=== PATIENT | female | born 1970 | race Caucasian/White ===

== ENCOUNTER 2018-11-08 20:33 | Outpatient (REF) | payer BC, SELFPAY ==
[2018-11-08 19:28] LABS: HCT 40.6 % (36.0-46.0); HGB 13.5 g/dL (12.0-15.5); Mean Corp. HGB Concentration 33.3 g/dL (32.0-36.0); Mean Corpuscular Hemoglobin 28.1 pg (27.0-33.0); Mean Corpuscular Volume 84.6 fL (80-95); Mean Platelet Volume 11.4 fL (8.0-11.0); Platelet Count 341 x1000/uL (130-400); RBC Distribution Width 14.5 % (11.7-14.6); White Blood Cell Count 8.35 k/cumm (4.4-10.8)
[2018-11-08 22:00] LABS: TSH (W/Ref FT4) 3.31 uIU/mL (0.36-3.74)
== END 2018-11-08 20:53 ==
LOC: NCHCN 20:33
PROVIDERS: PCP Nurse Practitioner Family; Visit Provider Nurse Practitioner Family
DX: R53.83 Other fatigue (principal)
CPT/HCPCS: 85027; 84443

== ENCOUNTER 2018-11-13 13:38 | Emergency (ER) | payer BC, SELFPAY ==
[2018-11-13 13:55] VITALS: BP 153/94; PULSE 107; RESP 18; TEMP 36.8; O2SAT 97
--- NOTE | 2018-11-13 13:58 | DI.CT_ITS ---
SYMPTOMS/DIAGNOSIS: LEFT UNILATERAL TONSILLAR SWELLING X 2 DAYS, H/O ABSCESS, NEGATIVE STREP TEST CERVICAL CT: CT examination of the cervical region was performed with intravenous infusion of 100 cc of Omnipaque 350. The patient reportedly has left tonsillar swelling. There is mild midline shift of the nasopharynx to the right at the level of the tonsils and there is poorly defined decreased attenuation in the left tonsil region consistent with poorly defined tonsillar abscess and/or inflammation. No gross mass identified. The airway appears normal more caudally and the laryngeal structures appear normal, as does the trachea. No evidence of a retropharyngeal abscess. Normal appearance of the epiglottis and aryepiglottic folds. No cervical mass or adenopathy. The visualized lung apices are clear. CONCLUSION: Findings consistent with early poorly defined left peritonsillar abscess. Please correlate clinically.
--- NOTE | 2018-11-13 14:08 | ED.GENADUL_ITS ---
Discharge Plan Disposition Patient Disposition: HOME Condition: Stable Discharge Details Chief Complaint: Sorethroat Clinical Impression: Peritonsillar abscess Primary Care Provider: Panchito Vance ED Provider: Pankaj Phillip Home Meds and New Rx's Prescriptions: New amoxicillin-pot clavulanate [Augmentin] 875-125 mg tablet 1 tab PO BID Qty: 14 RF: 0 No Action Mirena 1 EACH intrauterine device 1 ea Intrauterine ONCE Qty: 1 RF: 0 triamcinolone acetonide 0.1 % Cream TOPICAL RF: 0 Discharge Instructions Instructions: Peritonsillar Abscess (ED) Additional Instructions: Return immediately to the emergency department for any new or significant worsening of symptoms, inability to swallow, or difficulty breathing. Otherwise ensure that you take your second dose of antibiotic tonight before bed and get a dose first thing tomorrow morning and follow-up with Dr. Landry with ear nose and throat at the [place] office tomorrow at 1 PM. You take ibuprofen as needed for further discomfort. Stand Alone Forms: Work Release Referrals: Kody Landry MD [ [facility] STAFF PHYSICIAN] - 11/14/18 1:00 pm (Please present to the [place] [facility] office for reassessment of your infection) Discharge Data Discharge Date/Time-TO BE ENTERED AT DEPARTURE: 11/13/18 15:56 Medical Decision Making Patient presenting to the emergency department via primary care office for chief complaint of sore throat. They did rapid strep testing which was negative the patient has unilateral tonsillary swelling to the left side. She does state history of tonsil stones but that she is also had drainage for peritonsillar abscess. Physical exam shows a erythematous and mildly hypertrophied left tonsil. Patient has no drooling or trismus, no stridor, airway is stable. There is concern for peritonsillar abscess given patient's history and unilateral swelling so plan to do CT with contrast of neck. Pending results patient given Decadron. Review of labs show a mild leukocytosis otherwise nondiagnostic. CT imaging reviewed with radiologist shows a possible early peritonsillar abscess with no severe airway restriction. Patient reassessed and did state some slight improvement in sensation of swelling and swallowing. Did speak with Dr. Landry who states that he can see the patient in his [place] office at 1:00 tomorrow. Patient was placed upon Augmentin and return precautions were discussed. After discussion of diagnosis and plan of care patient has no further needs, questions, or concerns and states clear understanding to return to the emergency department for any worsening symptoms. HPI General Mode of arrival: ambulatory . Date/Time Provider Initiated Documentation: 11/13/18 13:58 . Limitations to Documentation: no limitations . Information obtained by: patient and RN notes reviewed . History of Present Illness 48 year old F presents to the emergency department with the chief complaint of Sore throat, described as moderate and similar to prior episodes, with intensity rated at 7. Quality is described as aching, and is localized to the face and mouth (Sore throat). Patient started experiencing this day(s) (3) and it has been constant. No relieving factors improve symptom(s), No exacerbating factors reported . Patient notes no other symptoms.. Patient did receive the following treatments prior to arrival, none Related Data Home Medications Medication Instructions Recorded Confirmed levonorgestrel [Mirena] 1 ea INTRAUTERINE ONCE #1 implant 06/16/15 11/13/18 amoxicillin-pot clavulanate 1 tab PO BID #14 tab 11/13/18 [Augmentin] triamcinolone acetonide TOPICAL 11/13/18 Previous Rx's Medication Instructions Recorded amoxicillin-pot clavulanate 1 tab PO BID #14 tab 11/13/18 [Augmentin] Allergies Allergy/AdvReac Type Severity Reaction Status Date / Time No Known Allergies Allergy Unverified 09/06/17 14:50 General Stated Complaint: Sorethroat MELISSA: 3 Review of Systems Constitutional Denies chills and Denies fever(s) ENT Denies otalgia, Denies nasal congestion, Reports odynophagia, Reports sore throat, Denies throat swelling and Denies tongue swelling Cardiovascular Denies chest pain and Denies dyspnea Respiratory Denies cough, Denies dyspnea, Denies stridor and Denies wheezing Gastrointestinal Reports odynophagia Allergic/Immunologic Denies throat swelling, Denies tongue swelling and Denies wheezing PFSH Family History Mother Diabetes Essential hypertension Uterine cancer Grandmother Heart disease Social History Smoking/Tobacco Use Status: Never Do you feel safe at home: Yes Do you feel safe in your relationship?: Yes Exam Const General: cooperative, comfortable and no acute distress Orientation: alert and awake [facility] Head: normal to inspection, normocephalic and atraumatic Ears: hearing grossly normal bilaterally and TM's normal bilaterally General nose exam: external nose normal Face and sinus: no erythema Mouth: oral mucosae normal, no drooling, no muffled voice and no trismus Throat: posterior oropharynx normal, uvula midline and abnormal tonsil on the left erythema and hypertrophy 2+ Neck Neck: normal visual inspection, full ROM, no lymphadenopathy, no meningeal signs, trachea midline and supple Resp Effort & Inspection: normal respiratory effort, able to speak in complete sentences and no stridor Auscultation: clear to auscultation bilaterally Course Vital Signs Temperature 36.8 C 11/13/18 13:55 Pulse 107 H 11/13/18 13:55 Respiratory Rate 18 11/13/18 13:55 Blood Pressure 153/94 H 11/13/18 13:55 Pulse Oximetry 97 11/13/18 13:55 Temperature 36.8 C 11/13/18 13:55 Temperature Source Skin 11/13/18 13:55 Pulse 107 H 11/13/18 13:55 Respiratory Rate 18 11/13/18 13:55 Blood Pressure 153/94 H 11/13/18 13:55 Pulse Oximetry 97 11/13/18 13:55 Oxygen Delivery Method Room Air 11/13/18 13:55 Oxygen Flow Rate 0 11/13/18 13:55 Pain Level 7 11/13/18 13:55 Comment 11/13/18 13:55
[2018-11-13] MEDS: Dexamethasone 10 MG/ML VIAL PO (14:17)
[2018-11-13] MEDS: Normal Saline 1,000 ML 1000 ML IV (14:17)
[2018-11-13 14:18] LABS: Abs Immature Grans 0.03 k/cumm (0.0-0.09); Absolute Basophil Count 0.05 k/cumm (0.0-0.2); Absolute Eosinophil Count 0.09 k/cumm (0.0-0.7); Absolute Lymphocyte Count 2.09 k/cumm (1.2-3.4); Absolute Monocyte Count 0.83 k/cumm (0.11-0.7); Basophils % 0.4; Eosinophils % 0.7; HCT 42.3 % (36.0-46.0); HGB 14.3 g/dL (12.0-15.5); Immature Grans % 0.2; Lymphocytes % 17.1; Mean Corp. HGB Concentration 33.8 g/dL (32.0-36.0); Mean Corpuscular Hemoglobin 28.5 pg (27.0-33.0); Mean Corpuscular Volume 84.3 fL (80-95); Mean Platelet Volume 10.6 fL (8.0-11.0); Monocytes % 6.8; Neutrophils % 74.8; Platelet Count 358 x1000/uL (130-400); RBC 5.02 m/cumm (4.00-5.20); RBC Distribution Width 14.5 % (11.7-14.6); White Blood Cell Count 12.23 k/cumm (4.4-10.8)
[2018-11-13 14:19] LABS: Absolute Neutrophil Count 9.15 k/cumm (1.2-6.7)
[2018-11-13] MEDS: Omnipaque 350 MG/ML 100 ML BTL IJ (15:13)
[2018-11-13 15:42] LABS: ALT 22 U/L (12-78); AST 10 U/L (15-37); Albumin 3.8 g/dL (3.4-5.0); Alkaline Phosphatase 64 U/L (46-116); Anion Gap 11.1 mmol/L (3-11); BUN 13 mg/dL (7-18); Bilirubin, Total 0.6 mg/dL (0.2-1.0); CO2 24.9 mmol/L (21.0-32.0); CREATININE 0.89 mg/dL (0.55-1.02); Calcium 8.9 mg/dL (8.5-10.1); Chloride 102 mmol/L (98-107); Glucose 106 mg/dL (70-100); Potassium 3.7 mmol/L (3.5-5.1); Sodium 138 mmol/L (136-145)
[2018-11-13] MEDS: Amoxicillin 875/Clav. 125 TAB PO (15:52)
[2018-11-13] MEDS: Ibuprofen 600 MG TAB (15:55)
== END 2018-11-13 15:56 | disposition home or self-care (01) ==
PROVIDERS: Emergency Provider Nurse Practitioner Family; PCP Nurse Practitioner Family
DX: J36 Peritonsillar abscess (principal)
CPT/HCPCS: 36415; 70491; 80053; 96360; 99285; 85025; 99284; J1100; J3490

== ENCOUNTER 2019-04-04 02:27 | Outpatient (CLI) | payer BC, SELFPAY ==
--- NOTE | 2019-04-04 12:41 | DI.MAMMO_ITS ---
EXAM: MG MAMMO SCREENING CLINICAL HISTORY: SCREENING Z12.39 TECHNIQUE: Mammograms were interpreted according to the usual protocol including computer analysis w Real Time Translation system, tomosynthesis and C-view imaging. COMPARISON: Current examination is compared with previous examinations including August 2016 FINDINGS: The breasts are heterogeneously dense. No dominant mass or clumped microcalcification is identified in either breast. Current examination is compared with previous examinations including August 2016 and there has been no gross interval change in appearance in comparison with the previous studies. IMPRESSION: No specific evidence of malignancy at this time. Routine screening examinations are suggested at yea rly intervals in this age group according to the ACS/ACR guidelines. Category 1, breast density reese gory C. BI-RADS Cat 1 - Negative Breast Density - Category C - Heterogeneously dense
== END 2019-04-04 02:47 ==
PROVIDERS: PCP Nurse Practitioner Family; Visit Provider Nurse Practitioner Family
DX: Z12.31 Encounter for screening mammogram for malignant neoplasm of breast (principal)
CPT/HCPCS: 77063; 77067

== ENCOUNTER 2019-04-16 13:52 | Outpatient (REF) | payer BC, SELFPAY ==
[2019-04-16 15:27] LABS: BUN 16 mg/dL (7-18); CO2 24.9 mmol/L (21.0-32.0); CREATININE 0.93 mg/dL (0.55-1.02); Calcium 9.4 mg/dL (8.5-10.1); Chloride 101 mmol/L (98-107); Glucose 123 mg/dL (74-106)
[2019-04-16 15:36] LABS: Anion Gap 16.1 mmol/L (3-11); Potassium 3.7 mmol/L (3.5-5.1); Sodium 142 mmol/L (136-145)
== END 2019-04-16 14:12 ==
LOC: NCHCN 13:52
PROVIDERS: PCP Nurse Practitioner Family; Visit Provider Nurse Practitioner Family
DX: I10 Essential (primary) hypertension (principal)
CPT/HCPCS: 80048

== ENCOUNTER 2019-06-03 17:08 | Outpatient (REF) | payer BC, SELFPAY ==
[2019-06-03 19:28] LABS: PROTEIN 32.5 mg/dL
[2019-06-03 19:29] LABS: COMMENT (LAB VIEW ONLY) 289.31 mg/dL; Prot/Crea Ur Ratio 0.11
[2019-06-03 19:31] LABS: COMMENT (LAB VIEW ONLY) 291.43 mg/dL; Microalb ug/mg Crea 15.3 ug/mg Cr
== END 2019-06-03 17:28 ==
LOC: NCHCN 17:08
PROVIDERS: PCP Nurse Practitioner Family; Visit Provider Nurse Practitioner Family
DX: I10 Essential (primary) hypertension (principal)
CPT/HCPCS: 82043; 82565; 82570; 84156

== ENCOUNTER 2019-07-02 01:06 | Outpatient (CLI) | payer BC, SELFPAY ==
--- NOTE | 2019-07-02 11:33 | DI.RAD_ITS ---
EXAM: XR SHOULDER LT COMPLETE 2+V CLINICAL HISTORY: LT SHOULDER PAIN, M25.512 TECHNIQUE: COMPARISON: No exams were available for comparison FINDINGS: Five views were obtained. There are prominent hypertrophic changes at the acromioclavicular joint. Mild acromial spurring noted inferiorly as well. There is mild marginal osteophyte formation of the glenohumeral joint particularly at the inferior glenoid. There are soft tissue calcifications most o f which appear to be associated with the distal supraspinatus tendon. . 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
== END 2019-07-02 01:26 ==
PROVIDERS: PCP Nurse Practitioner Family; Visit Provider Orthopaedic Surgery
DX: M25.512 Pain in left shoulder (principal); M19.012 Primary osteoarthritis, left shoulder; M75.82 Other shoulder lesions, left shoulder
CPT/HCPCS: 73030

== ENCOUNTER 2020-07-20 09:48 | Outpatient (REF) | payer BC, SELFPAY ==
[2020-07-20 17:02] LABS: ALT 30 U/L (14-59); AST 15 U/L (15-37); Albumin 3.9 g/dL (3.4-5.0); Alkaline Phosphatase 72 U/L (46-116); Anion Gap 8.4 mmol/L (3-11); BUN 12 mg/dL (7-18); Bilirubin, Total 0.4 mg/dL (0.2-1.0); CO2 29.6 mmol/L (21.0-32.0); CREATININE 0.9 mg/dL (0.55-1.02); Calcium 9.2 mg/dL (8.5-10.1); Calculated LDL 129 mg/dL (<100); Chloride 103 mmol/L (98-107); Cholesterol 229 mg/dL (<200); Glucose 92 mg/dL (74-106); HDL Cholesterol 40 mg/dL (40-60); Potassium 4.1 mmol/L (3.5-5.1); Sodium 141 mmol/L (136-145); Total Protein 7.5 g/dL (6.4-8.2); Triglyceride 303 mg/dL (<150)
[2020-07-20 17:04] LABS: COMMENT (LAB VIEW ONLY) 346.27 mg/dL; Microalb ug/mg Crea 15.1 ug/mg Cr
[2020-07-20 17:11] LABS: Hemoglobin A1C 5.7 % (<5.7)
[2020-07-21 10:27] LABS: Hepatitis C Ab w Rflx HCV PCR Negative (Negative)
[2020-07-21 11:32] LABS: HIV-1/2 Ag & Ab Screen Negative (Negative)
== END 2020-07-20 09:49 | disposition home or self-care (01) ==
LOC: NCHCN 09:48
PROVIDERS: PCP Nurse Practitioner Family; Visit Provider Nurse Practitioner Family
DX: I10 Essential (primary) hypertension (principal); R73.03 Prediabetes; R80.9 Proteinuria, unspecified; Z11.4 Encounter for screening for human immunodeficiency virus [HIV]; Z11.59 Encounter for screening for other viral diseases
CPT/HCPCS: 80053; 80061; 86803; 87389; 82043; 82570; 83036

== ENCOUNTER → 2021-07-21 02:03 | Outpatient (CLI) | payer BC, SELFPAY ==
--- NOTE | 2021-07-21 | DI.MAMMO_ITS ---
Exam(s) MAMMO SCREENING EXAM: MAMMO SCREENING CLINICAL HISTORY: SCREENING, Z12.39 TECHNIQUE: Mammograms were interpreted according to the usual protocol including computer analysis w AdXpose CAD system, tomosynthesis and C-view imaging. COMPARISON: 2013 through 2019 FINDINGS: The breasts are composed of heterogeneously dense fibroglandular densities, Breast Density category C . No suspicious masses or suspicious microcalcifications are seen. No skin thickening or abnormal axillary lymph nodes are seen. There has been no significant change from prior exams. IMPRESSION: BI-RADS Category 1, Negative mammogram. Yearly screening mammography is recommended. Breast Density Category C, heterogeneously Dense. The mammogram demonstrates the patient's breast tissue is dense. Dense breast tissue is very common a nd is not abnormal but dense breast tissue can make it harder to find cancer on a mammogram. Also, de nse breast tissue may increase breast cancer risk. This information about the result of the mammogram report was provided to the patient to raise their awareness. Use this report when you speak with the patient about their risks for breast cancer, which includes their family history. At that time, you may recommend additional screening tests (Ultrasound or MRI) as they might be useful based on their r isk. A negative radiographic report should not delay biopsy if a dominant or clinically suspicious mass is present. Up to ten percent of cancers are not identified on mammography. A negative report may reinforce clinical impression. Adenosis and dense breasts may obscure an underlying neoplasm. False positive reports average 6 to 10%.
== END ==
PROVIDERS: PCP Nurse Practitioner Family; Visit Provider Physician Assistant
DX: Z12.31 Encounter for screening mammogram for malignant neoplasm of breast (principal)
CPT/HCPCS: 77063; 77067

== ENCOUNTER 2021-08-19 14:01 | Outpatient (REF) | payer BC, SELFPAY ==
--- NOTE | 2021-08-19 13:00 | PAPFT_PTH ---
PATIENT: Rebecca Casper LOC: [facility] U#:[id number] AGE/SX: 50/F ROOM: RE08/19/[address]: ERICK Mendoza : 1970 BED: DIS: 08/19/2021 SPEC #: [id number] RECD: 08/19/21 18:13 STATUS: DONNIE REQ #: [id number] JESSICA: 08/19/21 13:[address]: Jody Florez DEPT: PENDING SALE TO [facility] Cytology RECD BY: Anat Majano ENTERED: 08/19/21 18:13 SP TYPE: PAPFT OTHR DR: Panchito Vance Tissues: 1 - CX/ENDOCX FOR PAP SMEARS Procedures: PAP THIN PREP/UVM Screening HPV DNA PROBE Comments: [id number]
== END 2021-08-19 14:02 | disposition home or self-care (01) ==
LOC: LBN 14:01
PROVIDERS: PCP Nurse Practitioner Family; Visit Provider Nurse Practitioner Family
DX: Z12.4 Encounter for screening for malignant neoplasm of cervix (principal); Z11.51 Encounter for screening for human papillomavirus (HPV)
CPT/HCPCS: 88142; 87624

== ENCOUNTER → 2021-08-27 15:53 | Outpatient (CLI) | payer OTHER, SELFPAY ==
--- NOTE | 2021-08-27 15:07 | DI.RAD_ITS ---
Exam(s) XR SACRUM COCCYX EXAM: XR SACRUM COCCYX CLINICAL HISTORY: PAIN. TECHNIQUE: 2D digital imaging was performed. Six images were obtained. COMPARISON: No exams were available for comparison FINDINGS: BONES: No acute fracture is present. No bony destructive lesion is seen. JOINTS: No dislocation present. SOFT TISSUE: There is an IUD in the pelvis. IMPRESSION: Unremarkable radiographs of the sacrum and coccyx. DATA REPOSITORY: RADIATION DOSE DELIVERED:
--- NOTE | 2021-08-27 15:08 | DI.RAD_ITS ---
Exam(s) XR LUMBAR SPINE COMPLETE EXAM: XR LUMBAR SPINE COMPLETE CLINICAL HISTORY: LOW BACK PAIN, M54.50. TECHNIQUE: 2D digital imaging was performed of the lumbar spine. Five images were obtained. AP, la teral, right oblique, left oblique and L5-S1 spot views were obtained. COMPARISON: No exams were available for comparison FINDINGS: BONES: No fracture or destructive lesion. Endplate osteophytes are seen in the lumbar spine particula rly at L2-3 and L3-L4. No facet hypertrophy identified. DISKS: Mild disc space narrowing at T12-L1 and L2-L3. ALIGNMENT: Lumbar spinal alignment is within normal limits. No spondylolysis or spondylolisthesis. SOFT TISSUE: There is an IUD in the pelvis. IMPRESSION: Mild degenerative changes in the lumbar spine. DATA REPOSITORY: RADIATION DOSE DELIVERED:
== END ==
PROVIDERS: PCP Nurse Practitioner Family; Visit Provider Physician Assistant
DX: M54.59 Other low back pain (principal); M51.36 Other intervertebral disc degeneration, lumbar region
CPT/HCPCS: 72110; 72220

== ENCOUNTER 2021-10-11 15:59 | Outpatient (REF) | payer SELFPAY ==
[2021-10-11 14:29] LABS: Abs Immature Grans 0.03 10^3/uL (0.0-0.06); Absolute Basophil Count 0.04 10^3/uL (0.0-0.2); Absolute Eosinophil Count 0.18 10^3/uL (0.0-0.7); Absolute Lymphocyte Count 1.65 10^3/uL (1.2-3.4); Absolute Monocyte Count 0.43 10^3/uL (0.1-0.8); Absolute Neutrophil Count 4.04 10^3/uL (1.2-6.7); Basophils % 0.6; Eosinophils % 2.8; HCT 43.2 % (36.0-46.0); HGB 14.3 g/dL (11.2-15.7); Immature Grans % 0.5; Lymphocytes % 25.9; MCH 27.7 pg (27.0-33.0); MCHC 33.1 % (32.0-36.0); MCV 84 fL (80-95); MPV 11.2 fL (8.0-11.0); Monocytes % 6.8; Neutrophils % 63.4; Platelet Count 339 10^3/uL (130-400); RBC 5.17 10^6/uL (3.93-5.22); RDW 13.7 % (11.7-14.6); RDW-SD 42.1 fL; WBC 6.37 10^3/uL (4.4-10.8)
[2021-10-11 14:43] LABS: Hemoglobin A1C 5.7 % (<5.7)
[2021-10-11 14:46] LABS: Anion Gap 8.6 mmol/L (3-11); BUN 12 mg/dL (7-18); CO2 29.4 mmol/L (21.0-32.0); CREATININE 0.9 mg/dL (0.55-1.02); Calcium 8.9 mg/dL (8.5-10.1); Calculated LDL 115 mg/dL (<100); Chloride 101 mmol/L (98-107); Cholesterol 214 mg/dL (<200); Glucose 98 mg/dL (74-106); HDL Cholesterol 37 mg/dL (40-60); Potassium 3.8 mmol/L (3.5-5.1); Sodium 139 mmol/L (136-145); Triglyceride 311 mg/dL (<150)
== END 2021-10-11 16:00 | disposition home or self-care (01) ==
LOC: NCHCN 15:59
PROVIDERS: PCP Nurse Practitioner Family; Visit Provider Physician Assistant
DX: R73.03 Prediabetes (principal); I10 Essential (primary) hypertension
CPT/HCPCS: 80048; 80061; 83036; 85025

== ENCOUNTER 2022-10-24 10:14 | Outpatient (REF) | payer OTHER, SELFPAY ==
[2022-10-24 15:43] LABS: ALT 26 U/L (14-59); AST 19 U/L (15-37); Albumin 3.7 g/dL (3.4-5.0); Alkaline Phosphatase 62 U/L (46-116); Anion Gap 9.8 mmol/L (3-11); BUN 17 mg/dL (7-18); Bilirubin, Total 0.5 mg/dL (0.2-1.0); CO2 25.2 mmol/L (21.0-32.0); CREATININE 0.8 mg/dL (0.55-1.02); Calcium 9.2 mg/dL (8.5-10.1); Calculated LDL 114 mg/dL (<100); Chloride 103 mmol/L (98-107); Cholesterol 231 mg/dL (<200); Estimated GFR 89.71 (mL/min/1.73m2); Glucose 106 mg/dL (74-106); HDL Cholesterol 38 mg/dL (40-60); Potassium 3.8 mmol/L (3.5-5.1); Sodium 138 mmol/L (136-145); Total Protein 7.4 g/dL (6.4-8.2); Triglyceride 398 mg/dL (<150)
[2022-10-24 16:12] LABS: Hemoglobin A1C 5.8 % (<5.7)
== END 2022-10-24 10:15 | disposition home or self-care (01) ==
LOC: NCHCN 10:14
PROVIDERS: PCP Physician Assistant; Visit Provider Physician Assistant
DX: I10 Essential (primary) hypertension (principal); R73.03 Prediabetes; G47.33 Obstructive sleep apnea (adult) (pediatric); L98.8 Other specified disorders of the skin and subcutaneous tissue
CPT/HCPCS: 80053; 80061; 83036

== ENCOUNTER → 2022-11-14 01:26 | Outpatient (CLI) | payer OTHER, SELFPAY ==
--- NOTE | 2022-11-14 | DI.MAMMO_ITS ---
Exam(s) MAMMO SCREENING EXAM: MAMMO SCREENING CLINICAL HISTORY: SCREENING,Z12.39. TECHNIQUE: Bilateral full field digital CC and MLO mammographic images were obtained with 3D tomosyn thesis and utilizing computer aided detection (CAD). COMPARISON: Prior mammograms were reviewed. FINDINGS: There has been no significant change in the appearance and distribution of the fibroglandular tissue. There are no new spiculated masses nor malignant appearing microcalcification groups. There is no significant architectural distortion nor skin thickening-retraction. IMPRESSION: No radiographic evidence of malignancy. BI-RADS Category 1 - Negative Breast Density - Category C - Heterogeneously dense Breast density Category C or D implies that the patient has dense breast tissue. Dense breast tissue can make it harder to find cancer on a mammogram. Dense breast tissue is also associated with an incr eased risk of breast cancer. This information about the result of the mammogram report was provided to the patient to raise their awareness. Use this report when you speak with the patient about their risks for breast cancer, which includes their family history. At that time, you may recommend additional screening tests (Ultrasoun d or MRI) as these tests may add significant information. A negative radiographic report should not delay biopsy if a dominant or clinically suspicious mass is present. Up to ten percent of cancers are not identified on mammography. A negative report may reinforce clinical impression. Adenosis and dense breasts may obscure an underlying neoplasm. False positive reports average 6 to 10%. Patient will receive a letter notifying them of these results.
== END ==
PROVIDERS: PCP Physician Assistant; Visit Provider Physician Assistant
DX: Z12.31 Encounter for screening mammogram for malignant neoplasm of breast (principal)
CPT/HCPCS: 77063; 77067

== ENCOUNTER 2023-10-23 11:53 | Outpatient (REF) | payer OTHER, SELFPAY ==
[2023-10-23 16:21] LABS: Hemoglobin A1C 6.1 % (<5.7)
[2023-10-23 16:38] LABS: BUN 12 mg/dL (7-18); CREATININE 0.9 mg/dL (0.55-1.02); Calcium 9.2 mg/dL (8.5-10.1); Calculated LDL 125 mg/dL (<100); Chloride 103 mmol/L (98-107); Cholesterol 247 mg/dL (<200); Glucose 110 mg/dL (74-106); HDL Cholesterol 44 mg/dL (40-60); Potassium 3.6 mmol/L (3.5-5.1); Sodium 140 mmol/L (136-145); Triglyceride 394 mg/dL (<150)
== END 2023-10-23 11:54 | disposition home or self-care (01) ==
LOC: NCHCN 11:53
PROVIDERS: PCP Physician Assistant; Visit Provider Physician Assistant
DX: I10 Essential (primary) hypertension (principal); R73.03 Prediabetes
CPT/HCPCS: 80048; 80061; 83036

== ENCOUNTER 2023-11-21 02:11 | Outpatient (CLI) | payer OTHER, SELFPAY ==
--- NOTE | 2023-11-21 12:19 | DI.MAMMO_ITS ---
Exam(s) MAMMO SCREENING EXAM: MAMMO SCREENING CLINICAL HISTORY: SCREENING, Z12.31. TECHNIQUE: Bilateral full field digital CC and MLO mammographic images were obtained with 3D tomosyn thesis and utilizing computer aided detection (CAD). COMPARISON: Prior mammograms were reviewed. FINDINGS: In the left breast there is asymmetric density-possible nodule measuring 4 x 4 mm located approximate ly 12 cm in from the nipple on the CC view. Spot compression and ultrasound recommended. In the opposite-right breast on the MLO view there is a round nodular density measuring 0.5 x 4.5 mm located 4 cm in from the nipple on the MLO view. Spot compression recommended. There are no malignant-appearing microcalcification groups in either breast. There is no significant architectural distortion nor skin thickening-retraction. IMPRESSION: Bilateral asymmetric densities-possible nodules. Spot compression MLO view of the right breast and s pot compression cc view of the left breast recommended. Also recommend bilateral complete breast ult rasound BI-RADS Category 0 - Incomplete: Need additional imaging evaluation Breast Density - Category C - Heterogeneously dense Breast density Category C or D implies that the patient has dense breast tissue. Dense breast tissue can make it harder to find cancer on a mammogram. Dense breast tissue is also associated with an incr eased risk of breast cancer. This information about the result of the mammogram report was provided to the patient to raise their awareness. Use this report when you speak with the patient about their risks for breast cancer, which includes their family history. At that time, you may recommend additional screening tests (Ultrasoun d or MRI) as these tests may add significant information. A negative radiographic report should not delay biopsy if a dominant or clinically suspicious mass is present. Up to ten percent of cancers are not identified on mammography. A negative report may reinforce clinical impression. Adenosis and dense breasts may obscure an underlying neoplasm. False positive reports average 6 to 10%. Patient will receive a letter notifying them of these results.
== END 2023-11-21 02:31 ==
LOC: DI 02:11
PROVIDERS: PCP Physician Assistant; Visit Provider Physician Assistant
DX: Z12.31 Encounter for screening mammogram for malignant neoplasm of breast (principal)
CPT/HCPCS: 77063; 77067

== ENCOUNTER 2023-12-01 00:35 | Outpatient (CLI) | payer OTHER, SELFPAY ==
--- NOTE | 2023-12-01 | DI.MAMMO_ITS ---
Exam(s) MAMMO SCREEN CALL BACK BI EXAM: MAMMO SCREEN CALL BACK BI CLINICAL HISTORY: Bilateral asymmetric densities-possible nodules;4x4 mm 12 cm from nipple lt. TECHNIQUE: Craniocaudal and mediolateral oblique Full Field Digital Mammography views of the bilater al breast with Computer Aided Diagnosis. COMPARISON: Comparison is made with prior examinations. FINDINGS: Mammography/Tomosynthesis: Masses/Architectural Distortion: The areas of concern in each of the breast do not persist on the add itional images. No suspicious masses or areas of architectural distortion are seen. Microcalcifictions: No suspicious pleomorphic-type are seen. Skin Thickening/Nipple Retraction: None. IMPRESSION: 1. No evidence of malignancy is noted. 2. Unless there is more urgent need, follow-up screening mammography is recommended, as per [place] [employer] guidelines. 3. The findings were discussed with the patient on the date of the examination. BI-RADS Category 1 - Negative Breast Density - Category C - Heterogeneously dense Breast density Category C or D implies that the patient has dense breast tissue. Dense breast tissue can make it harder to find cancer on a mammogram. Dense breast tissue is also associated with an incr eased risk of breast cancer. This information about the result of the mammogram report was provided to the patient to raise their awareness. Use this report when you speak with the patient about their risks for breast cancer, which includes their family history. At that time, you may recommend additional screening tests (Ultrasoun d or MRI) as these tests may add significant information. A negative radiographic report should not delay biopsy if a dominant or clinically suspicious mass is present. Up to ten percent of cancers are not identified on mammography. A negative report may reinforce clinical impression. Adenosis and dense breasts may obscure an underlying neoplasm. False positive reports average 6 to 10%. Patient will receive a letter notifying them of these results.
--- OUTSIDE RECORDS SUMMARY | 2023-12-01 00:40 | XMS_ITS | Encounter Summary ---
Author Organization [facility] Address [address] [place] [address] Care Team Providers Care Trail Construction Worker Name Role Phone Ramirez Artis MD Primary Care Provider [phone] Encounter Details Date Type Department Care Team (Late st Contact Info) Description 12/20/2017 14:57 EDT - 12/20/2017 23:59 EDT Hospital Encounter [facility] - Other [address] [place] [address] Lasha Monroy MD [address] [facility], [facility] [address] [place] [id number] Discharge Disposition: Auto Discharge Social History Tobacco Use Types Packs/Day Years Used Date Smoking Tobacco: Never Assessed Sex and Gender Information Value Date Recorded Sex Assigned at Not on file Gender Identity Not on file Sexual Orientation Not on file documented as of this encounter Discharge Diagnoses Diagnosis Z00.00 Encounter for general adult medical examination without abnormal findings-Z00.00[ICD-10-CM] documented in this encounter Discharge Disposition Disposition Code Departure Means Destination Auto Discharge Home documented in this encounter Plan of Treatment Not on file documented as of this encounter Visit Diagnoses Not on filedocumented in this encounter Care Teams Trail Construction Worker Relationship Specialty Start Date End Date Ramirez Artis MD [address] [place] [id number] PCP - General 11/28/08 documented as of this encounter
--- OUTSIDE RECORDS SUMMARY | 2023-12-01 00:40 | XMS_ITS | Encounter Summary ---
Author Organization [facility] Address [address] [place] [address] Care Team Providers Care Organic Chemistry Teacher Name Role Phone Ramirez Artis MD Primary Care Provider [phone] Encounter Details Date Type Department Care Team (Late st Contact Info) Description 08/20/[address] [facility] Pathology & Laboratory Medicine - [facility] [address] [place] [address] Jody Florez, [facility] [address] [place] [address] [place] [address] Encounter for other general examination Social History Tobacco Use Types Packs/Day Years Used Date Smoking Tobacco: Never Assessed Interpersonal Safety Answer Date Record ed Physically Hurt Never 10/27/2019 Verbally Threaten Not on file 10/27/2019 Sex and Gender Information Value Date Recorded Sex Assigned at Not on file Gender Identity Not on file Sexual Orientation Not on file documented as of this encounter Plan of Treatment Not on file documented as of this encounter Procedures Procedure Name Priority Date/Time Associated Diagnosis Comments PAP TEST Today 08/19/2021 13:00 EDT Encounter for other general examination HPV DNA DETECTION WITH GENOTYPING, PCR Today 08/19/2021 13:00 EDT Encounter for other general examination documented in this encounter Results * HUMAN PAPILLOMAVIRUS (HPV) DETECTION-HIGH RISK TYPES (08/19/2021 13:00 EDT) HPV other High Risk types, PCR Negative Negative 08/27/2021 16:00 EDT [facility] Comment:No E6 or E7 mRNA is detected from HPV types 16,18,31,33,35,39,45,51,52,56,58,59,66, and 68 by strategic planning analyst mediated amplification. Papanicolaou smear specimen (specimen) CERVIX UTERI STRUCTURE / Unknown 08/19/2021 13:00 EDT 08/26/2021 11:09 EDT Jody Baldo Gautam ASSOCIATE PROFESSOR OF LAW MICROBIOLOGY - GENER AL ORDERABLES [facility] [address] [place] [address] * PAP TEST (08/19/2021 13:00 EDT) Specimens A. Cervix and/or Endocervix , ThinPrep Imaging System with Manual Evaluation 08/27/2021 16:00 EDT [facility] Specimen Adequacy Satisfactory for Evaluation - transformation zone component present 08/27/2021 16:00 EDT [facility] General Categorization Negative for intraepithelial lesion or malignancy 08/27/2021 16:00 EDT [facility] Attestation . 08/27/2021 16:00 T [facility] at 1600 Clinical History See below 08/28/19 16:00 EDT [facility] HPV The result for the Human Papillomavirus (HPV) Detection-High Risk Types is Negative. No E6 or E7 mRNA is detected from HPV types 16,18,31,33,35,39 ,45,51,52,56,58,5 9,66, and 68 by strategic planning analyst mediated amplification.Jina ting was performed on specimen [id number] and was resulted on 08/27/2021 1547 EDT by LENA, LAB INSTRUMENT RESULTS IN 08/27/2021 16:00 EDT [facility] Performing Lab [facility] 08/27/2021 16:00 EDT [facility] Scanned Images 08/27/2021 16:00 EDT [facility] Papanicolaou smear specimen (specimen) CERVIX UTERI STRUCTURE / Unknown 08/19/2021 13:00 EDT 08/20/2021 10:26 EDT Jody Florez ASSOCIATE PROFESSOR OF LAW PATHOLOGY ORDERABLES [facility] [address] [place] [address] documented in this encounter Visit Diagnoses Diagnosis Encounter for other general examination documented in this encounter Care Teams Organic Chemistry Teacher Relationship Specialty Start Date End Date Ramirez Artis MD [address] [place] [phone] PCP - General 11/28/08 documented as of this encounter
--- OUTSIDE RECORDS SUMMARY | 2023-12-01 00:40 | XMS_ITS | Encounter Summary ---
Author Organization [facility] Address [address] [place] [address] Care Team Providers Care Pot Lining Supervisor Name Role Phone Ramirez Artis MD Primary Care Provider [phone] Encounter Details Date Type Department Care Team (Late st Contact Info) Description 06/16/2015 Results Only [facility] [phone] Jody Florez, [address] [place] [address] Social History Tobacco Use Types Packs/Day Years Used Date Smoking Tobacco: Never Assessed Sex and Gender Information Value Date Recorded Sex Assigned at Not on file Gender Identity Not on file Sexual Orientation Not on file documented as of this encounter Plan of Treatment Not on file documented as of this encounter Procedures Procedure Name Priority Date/Time Associated Diagnosis Comments PAP TEST- RESULT ONLY Routine 06/16/2015 0:00 EDT documented in this encounter Results * PAP TEST- RESULT ONLY (06/16/2015 0:00 EDT) Pathology Report: CYTOPATHOLOGY REPORT Reports generated via electronic interface contain original data; however they are lacking the format of the original report. Caution should be taken when reading/interpreti ng unformatted reports. Name: ? REBECCA CASPER ? Accession #: ? [id number] ? : ? 1970 (Age: 44) ??F ?Collect Date: ? 06/16/2015 ? Location: ? [facility] ? Receive Date: ? 06/17/2015 ? Provider: JODY FLOREZ CONCRETE BLOCK MOLDER Copy to: TARIK ADLER ROOM SERVICE ATTENDANT ? Final Report SPECIMEN ADEQUACY ? Satisfactory for Evaluation - transformation zone component present GENERAL CATEGORIZATION ? Negative for Intraepithelial Lesion or Malignancy ?? Hormonal/Contracep tive status: Intrauterine device: Mirena Specimen/Source: ??Pap Test, Cervix/Endocervix, ThinPrep Imaging System with manual evaluation Document reviewed and electronically signed by: ? KAILEE Goodwin(ASCP) ? Report ??Date: 06/23/2015 10:01 HPV with Pap Test ? Date Ordered: ? 06/23/2015 ? Status: ?? Signed Out ?Date Complete: ? 06/25/2015 ? By: ??System Interface ? Date Reported: ? 06/25/2015 ? Interpretation RESULT: Negative for HPV. No E6 or E7 mRNA is detected from HPV types 16,18,31,33,35, 39,45,51,52,56,58, 59,66, and 68 by manager order mediated amplification. Comments Document reviewed and electronically signed by: ? System Interface ? Report date: 06/25/2015 By the signature above, the attending physician certifies that he/she has personally conducted a gross and/or microscopic examination of the described specimens and rendered or confirmed the above diagnosis. End of Report [facility] 06/16/2015 06/17/2015 Jody Florez CONCRETE BLOCK MOLDER PATHOLOGY ORDERABLES [facility] [address] [place] [address] documented in this encounter Visit Diagnoses Not on filedocumented in this encounter Care Teams Pot Lining Supervisor Relationship Specialty Start Date End Date Ramirez Artis MD [address] [place] [address] PCP - General 11/28/08 documented as of this encounter
--- OUTSIDE RECORDS SUMMARY | 2023-12-01 00:40 | XMS_ITS | Clinical Summary ---
Author Organization [facility] Address [address] [place] [address] Care Team Providers Care Tail Sawyer Name Role Phone Ramirez Artis MD Primary Care Provider [phone] Social History Tobacco Use Types Packs/Day Years Used Date Smoking Tobacco: Never Assessed Interpersonal Safety Answer Date Record ed Physically Hurt Never 10/27/2019 Verbally Threaten Not on file 10/27/2019 Sex and Gender Information Value Date Recorded Sex Assigned at Not on file Gender Identity Not on file Sexual Orientation Not on file Plan of Treatment Health Maintenance Due Date Last Done Comments Hepatitis B Vaccine (1 of 3 - 19+ 3-dose series) 10/15 COVID-19 Vaccine ( season) 2022 Hepatitis C Screen Completed 07/20/2020 Procedures Procedure Name Priority Date/Time Associated Diagnosis Comments HEPATITIS C AB W REFLEX TO HCV RNA BY PCR Routine 07/20/2020 9:30 EDT from Last 3 Months or Most Recently Relevant to Health Maintenance Results * HEPATITIS C AB W REFLEX TO HCV RNA BY PCR (07/20/2020 9:30 EDT) Hep C Antibody Negative Negative 07/21/2020 10:[address] [facility] Blood VENOUS BLOOD / Unknown 07/20/2020 9:30 EDT 07/20/2020 21:25 EDT Provider Outr Resulting Lab CHEMISTRY & BLOOD GAS ORDERABLES [facility] [address] [place] [address] from Last 3 Months or Most Recently Relevant to Health Maintenance Care Teams Tail Sawyer Relationship Specialty Start Date End Date Ramirez Artis MD [address] [place] [phone] PCP - General 11/28/08
--- OUTSIDE RECORDS SUMMARY | 2023-12-01 00:40 | XMS_ITS | Encounter Summary ---
Author Organization [facility] Address [address] [place] [address] Care Team Providers Care Sand Conditioner Machine Name Role Phone Ramirez Artis MD Primary Care Provider [phone] Encounter Details Date Type Department Care Team (Late st Contact Info) Description 04/09/2009 Orders Only [facility] Laboratory Services - [facility] ([facility] [address] [place], [place] [id number] Deysi Adler, WET WASHER MACHINE [address] [place] [address] Social History Tobacco Use Types Packs/Day Years Used Date Smoking Tobacco: Never Assessed Sex and Gender Information Value Date Recorded Sex Assigned at Not on file Gender Identity Not on file Sexual Orientation Not on file documented as of this encounter Plan of Treatment Not on file documented as of this encounter Procedures Procedure Name Priority Date/Time Associated Diagnosis Comments CYTOPATHOLOGY Routine 04/09/2009 0:00 EST documented in this encounter Results * CYTOPATHOLOGY (04/09/2009 0:00 EST) Pathology Report: CYTOPATHOLOGY REPORT ? Reports generated via electronic interface contain original data; ? however they are lacking the format of the original report. ? Caution should be taken when reading/interpreti ng unformatted reports. ? Name: ? REBECCA CASPER ? Accession #: ? [id number] ? : ? 1970 (Age: 38) ??F ?Collect Date: ? 04/09/2009 ? Location: ? [facility] ? Receive Date: ? 04/13/2009 ? Provider: ?DEYSI ADLER WET WASHER MACHINE ? Copy to: ? Specimen/Source: ?Pap Test, Cervix/Endocervix, ThinPrep Imaging System ? with manual evaluation ? Last Menstrual Period: ? Hormonal/Contracep tive Status: ? Intrauterine device: mirena ? Other: ? HPVA - HPV testing requested if ASC-US on the current ThinPrep Pap test. ? SPECIMEN ADEQUACY ? Satisfactory for Evaluation ? - transformation zone component present ? GENERAL CATEGORIZATION ? Negative for Intraepithelial Lesion or Malignancy ? Document reviewed and electronically signed by: ? Sue Rangellogg, [place](ASCP) ? Report Date: ??04/14/2009 10:23 ? End of Report ? [facility] 04/09/2009 04/13/2009 Deysi Adler WET WASHER MACHINE PATHOLOGY ORDERABLES Performing Organization Address [facility] Co de Phone Number [facility] [address] [place] [address] documented in this encounter Visit Diagnoses Not on filedocumented in this encounter Care Teams Sand Conditioner Machine Relationship Specialty Start Date End Date Ramirez Artis MD [address] [place] [address] PCP - General 11/28/08 documented as of this encounter
--- OUTSIDE RECORDS SUMMARY | 2023-12-01 00:40 | XMS_ITS | Referral Summary ---
Author Organization [facility] Address [address] [place] [address] Care Team Providers Care Gasket Inspector Name Role Phone Ramirez Artis MD Primary Care Provider [phone] Social History Tobacco Use Types Packs/Day Years Used Date Smoking Tobacco: Never Assessed Interpersonal Safety Answer Date Record ed Physically Hurt Never 10/27/2019 Verbally Threaten Not on file 10/27/2019 Sex and Gender Information Value Date Recorded Sex Assigned at Not on file Gender Identity Not on file Sexual Orientation Not on file Plan of Treatment Not on file Procedures Procedure Name Priority Date/Time Associated Diagnosis [...] ORDERABLES [facility] [address] [place] [address] from Last 3 Months or Most Recently Relevant to Health Maintenance Care Teams Gasket Inspector Relationship Specialty Start Date End Date Ramirez Artis MD [address] [place] [address] [phone] (work) [facility] - General 11/28/08
--- OUTSIDE RECORDS SUMMARY | 2023-12-01 00:40 | XMS_ITS | Encounter Summary ---
Author Organization [facility] Address [address] [place] [address] Care Team Providers Care Ship'S Engineer Name Role Phone Ramirez Artis MD Primary Care Provider [phone] Encounter Details Date Type Department Care Team (Late st Contact Info) Description 07/20/2020 Lab Requisition [facility] Pathology & Laboratory Medicine - [facility] [address] [place], [place] [phone] Outr Resulting Lab, Provider Social History Tobacco Use Types Packs/Day Years [...] RNA BY PCR Routine 07/20/2020 9:30 EDT documented in this encounter Results * HEPATITIS C AB W REFLEX TO HCV RNA BY PCR (07/20/2020 9:30 EDT) Hep C Antibody Negative Negative 07/21/2020 10:22 EDT [facility] Blood VENOUS BLOOD / Unknown 07/20/2020 9:30 EDT 07/20/2020 21:25 EDT Provider Outr Resulting Lab CHEMISTRY & BLOOD GAS ORDERABLES [facility] [address] [place] [address] documented in this encounter Visit Diagnoses Not on filedocumented in this encounter Care Teams Ship'S Engineer Relationship Specialty Start Date End Date Ramirez Artis MD [address] [place] [address] PCP - General 11/28/08 documented as of this encounter
--- OUTSIDE RECORDS SUMMARY | 2023-12-01 00:40 | XMS_ITS | Clinical Summary ---
Author Organization [facility] [place] [address] Care Team Providers Care Keymodule Assembly Supervisor Name Role Phone Nathanael Steele Primary Care Provider [phone] Encounters Date Type Department Care Team Description 11/17/2023 Transcribe Orders eD Incoming Referrals [phone] Nathanael Steele PA Chloasmjag from Last 3 Months Social History Tobacco Use Types Packs/Day Years Used Date Smoking Tobacco: Never Assessed Sex and Gender Information Value Date Recorded Sex Assigned at Not on file Gender Identity Not on file Sexual Orientation Not on file Plan of Treatment Health Maintenance Due Date Last Done Comments CT Colonography 1970 Colonoscopy 1970 Colorectal Cancer Screening 1970 FIT DNA 1970 FIT 1970 Sigmoidoscopy (10 year) with FIT yearly 1970 Sigmoidoscopy 1970 HIV screen 1990 Hepatitis C Screening 1990 Hepatitis B vaccine (0-59 yrs) (1) 10/16/1991 Tdap adult 10/16/1991 Tetanus vaccine 10/16/1991 HPV test 2002 PAP Smear 2002 Breast Cancer Share Decision Needed 2012 Breast Cancer screening 2012 Zoster vaccine (1 of 2) 2022 Covid-19 Vaccine (1 - 2022-24 season) 2023 Influenza (Flu) vaccine (1 o f 1 - Influenza standard series) 11/26/2023 Care Teams Keymodule Assembly Supervisor Relationship Specialty Start Date End Date Nathanael Steele PA [address] [place] [address] PCP - General Internal Medicine 11/17/23
--- OUTSIDE RECORDS SUMMARY | 2023-12-01 00:40 | XMS_ITS | Encounter Summary ---
Author Organization [facility] Address [address] [place] [address] Care Team Providers Care Bobbin Winder Tender Name Role Phone Ramirez Artis MD Primary Care Provider [phone] Encounter Details Date Type Department Care Team (Late st Contact Info) Description 02/21/2012 Results Only [facility] Laboratory Services - [facility] ([facility] [address] [place], [place] [phone] Jody Florez, [facility] [address] [place] [address] [place] [address] Social History Tobacco Use Types [...] Diagnosis Comments PAP TEST- RESULT ONLY Routine 02/21/2012 0:00 EST documented in this encounter Results * PAP TEST- RESULT ONLY (02/21/2012 0:00 EST) Pathology Report: CYTOPATHOLOGY REPORT Reports generated via electronic interface contain original data; however they are lacking the format of the original report. Caution should be taken when reading/interpreti ng unformatted reports. Name: ? REBECCA CASPER ? Accession #: ? [id number] ? : ? 1970 (Age: 41) ??F ?Collect Date: ? 02/21/2012 ? Location: ? [facility] ? Receive Date: ? 02/22/2012 ? Provider: OJDY FLOREZ DISTRICT WIRE CHIEF Copy to: ? Final Report SPECIMEN ADEQUACY ? Satisfactory for Evaluation - transformation zone component present GENERAL CATEGORIZATION ? Negative for Intraepithelial Lesion or Malignancy ?? Hormonal/Contracep tive status: Intrauterine device: mirena Other: Additional clinical information: pap 04/09/09 negative Specimen/Source: ??Pap Test, Cervix/Endocervix, ThinPrep Imaging System with manual evaluation Document reviewed and electronically signed by: ? Zulema Walton, CT(ASCP) ? Report ??Date: 02/28/2012 16:19 HPV with Pap Test ? Date Ordered: ? 02/28/2012 ? Status: ?? Signed Out ?Date Complete: ? 03/01/2012 ? By: ??System Interface ? Date Reported: ? 03/01/2012 ? Interpretation RESULT: Negative for HPV. No E6 or E7 mRNA is detected from HPV types 16,18,31,33,35, 39,45,51,52,56,58, 59,66, and 68 by delivery person mediated amplification. Comments Document reviewed and electronically signed by: ? System Interface ? Report date: 03/01/2012 By the signature above, the attending physician certifies that he/she has personally conducted a gross and/or microscopic examination of the described specimens and rendered or confirmed the above diagnosis. End of Report [facility] 02/21/2012 02/22/2012 Jody Florez DISTRICT WIRE CHIEF PATHOLOGY ORDERABLES Performing Organization Address City/State/[facility] Co de Phone Number [facility] [address] [place] [address] documented in this encounter Visit Diagnoses Not on filedocumented in this encounter Care Teams Bobbin Winder Tender Relationship Specialty Start Date End Date Ramirez Artis MD [address] [place] [address] PCP - General 11/28/08 documented as of this encounter
--- OUTSIDE RECORDS SUMMARY | 2023-12-01 00:40 | XMS_ITS | Encounter Summary ---
Author Organization [facility] Address [address] [place] [address] Care Team Providers Care Nanoelectronics Engineer Name Role Phone Unavailable Primary Care Provider Unavailabl e Encounter Details Date Type Department Care Team (Late st Contact Info) Description 11/25/2008 Orders Only [facility] Laboratory Services - [facility] ([facility] [address] [place], [place] [phone] Ramirez Artis MD [address] [place] [phone] Social History Tobacco Use Types Packs/Day Years Used Date Smoking Tobacco: Never Assessed Sex and Gender Information Value Date Recorded Sex Assigned at Not on file Gender Identity Not on file Sexual Orientation Not on file documented as of this encounter Plan of Treatment Not on file documented as of this encounter Procedures Procedure Name Priority Date/Time Associated Diagnosis Comments SURGICAL PATHOLOGY Routine 11/25/2008 0:00 EDT documented in this encounter Results * SURGICAL PATHOLOGY (11/25/2008 0:00 EDT) Pathology Report: SURGICAL PATHOLOGY REPORT ? Reports generated via electronic interface contain original data; ? however they are lacking the format of the original report. ? Caution should be taken when reading/interpreti ng unformatted reports. ? Name: ? PEREZ, REBECCA L ? Accession #: ? [id number] ? : ? 1970 (Age: 38) ??F ? Collect Date: ? 11/25/2008 ? Location: ? [facility] ? Receive Date: ? 11/26/2008 ? Provider: CANDY AJAMIE MD ? Copy to: TARIK ADLER UPSTAIRS MAID ? Final Pathologic Diagnosis: ? Skin of breast, right inferior, excision: ? - Follicular cyst, infundibular type. ? Document reviewed and electronically signed by: ? Melissa Fonseca, MD ? Report ??Date: 11/28/2008 15:00 ? By the signature above, the attending physician certifies that he/she has ? personally conducted a gross and/or microscopic examination of the described ? specimens and rendered or confirmed the above diagnosis. ? Specimen(s) Received: ? Right inferior breast excisional biopsy, suture on superior side ? Clinical History: ? Skin lesion ? Gross Description: ? Received in formalin labelled Rebecca Casper and breast lesion- suture on superior side is an oriented elliptical excision of stokes skin with a suture ?? on one side designating the superior aspect. ??The specimen measures 2.3 cm from medial to lateral, 0.9 cm from superior to inferior, and is excised to a depth ?? of 0.5 cm. ??There is a central, slightly raised stokes-warren asymmetrical nodule ? measuring 0.7 x 0.5 by less than 0.1 cm. ??The superior aspect is blue-inked and the inferior aspect is black-inked. ??Sectioning reveals an underlying cystic ? structure containing a stokes pasty material and measuring approximately 0.8 x 0.6 x 0.5 cm. ??Two technical account representative central sections are submitted in one cassette. ?? (Rommel Bojorquez)/mpl ? End of Report ? [facility] 11/25/2008 11/26/2008 18: 46 EDT Ramirez Artis MD PATHOLOGY ORDERABLES [facility] [address] [place] [address] documented in this encounter Visit Diagnoses Not on filedocumented in this encounter
--- OUTSIDE RECORDS SUMMARY | 2023-12-01 00:40 | XMS_ITS | Encounter Summary ---
Author Organization [facility] [place] [address] Care Team Providers Care Powder Core Tester Name Role Phone Nathanael Steele Primary Care Provider Reason for Referral * Consultation (Routine) - Authorized Specialty Diagnoses / Procedures Referred By Heladio mo Referred To Contact Dermatology Diagnoses Chloasma MELASMA MANAGEMENT AND SKIN CANCER SCREENING Nathanael Steele PA [address] [place] [address] [facility] Dermatology [address] [place] [address] Referral ID Status Reason Start Date Expiration Date Visits Requested Visits Authorized [id number] Authorized Consult, Test & Treat PCP Updated and/or Approved 11/01/2023 05/03/2024 6 6 Encounter Details Date Type Department Care Team (Late st Contact Info) Description 11/17/2023 Transcribe Orders eDH Incoming Referrals [phone] Nathanael Steele PA [address] [place], [place] [phone] Chloasma Social History Tobacco Use Types Packs/Day Years Used Date Smoking Tobacco: Never Assessed Sex and Gender Information Value Date Recorded Sex Assigned at Not on file Gender Identity Not on file Sexual Orientation Not on file documented as of this encounter Plan of Treatment Scheduled Referrals Name Type Priority Associated Diagnoses Order Schedule Referral to Dermatology Outpatient Referral Routine Chloasma Ordered: 11/17/2023 documented as of this encounter Visit Diagnoses Diagnosis Chloasma Other dyschromia documented in this encounter Care Teams Powder Core Tester Relationship Specialty Start Date End Date Nathanael Steele PA [address] [place] [address] PCP - General Internal Medicine 11/17/23 documented as of this encounter
--- OUTSIDE RECORDS SUMMARY | 2023-12-01 00:40 | XMS_ITS | Encounter Summary ---
Author Organization [facility] Address [address] [place] [address] Care Team Providers Care Fire Fighting Equipment Specialist Name Role Phone Ramirez Artis MD Primary Care Provider [phone] Encounter Details Date Type Department Care Team (Late st Contact Info) Description 07/20/2020 Lab Requisition [facility] Pathology & Laboratory Medicine - [facility] [address] [place], [place] [address] Outr Resulting Lab, Provider Social History Tobacco [...] Procedure Name Priority Date/Time Associated Diagnosis Comments HIV 1/2 ANTIGEN AND ANTIBODY, 4TH GENERATION Routine 07/20/2020 9:30 EDT documented in this encounter Results * HIV 1/2 ANTIGEN AND ANTIBODY, 4TH GENERATION (07/20/2020 9:30 EDT) HIV 1 and 2 Antibody/p24 Antigen, 4th Generation Negative Negative 07/21/2020 11:26 EDT [facility] Comment: If acute HIV-1 infection is suspected in a high risk ??patient, submit plasma specimen for HIV-1 RNA quantitation test. Fourth Generation assay performed on the Siemens [facility] [employer] (Listn)aur. Blood VENOUS BLOOD / Unknown 07/20/2020 9:30 EDT 07/20/2020 21:25 EDT Provider Outr Resulting Lab IMMUNOLOGY A ND SEROLOGY ORDERABLES [facility] [address] [place] [address] documented in this encounter Visit Diagnoses Not on filedocumented in this encounter Care Teams Fire Fighting Equipment Specialist Relationship Specialty Start Date End Date Ramirez Artis MD [address] [place] [address] PCP - General 11/28/08 documented as of this encounter
--- OUTSIDE RECORDS SUMMARY | 2023-12-01 00:40 | XMS_ITS | Encounter Summary ---
Author Organization [facility] Address [address] [place] [address] Care Team Providers Care Cat Operator Name Role Phone Unavailable Primary Care Provider Unavailabl e Encounter Details Date Type Department Care Team (Late st Contact Info) Description 03/25/2008 Before [facility] Converted Visit (Maple) [facility] - [facility] conversion [address] [place] [address] Jody Florez, [facility] [address] [place] [address] [place] [address] Social History Tobacco Use Types [...] Priority Date/Time Associated Diagnosis Comments CYTOPATHOLOGY Routine 03/25/2008 0:00 EST documented in this encounter Results * CYTOPATHOLOGY (03/25/2008 0:00 EST) Pathology Report: CYTOPATHOLOGY REPORT ? Reports generated via electronic interface contain original data; ? however they are lacking the format of the original report. ? Caution should be taken when reading/interpreti ng unformatted reports. ? Name: ? PENNIE, REBECCA L ? Accession #: ? [id number] ? : ? 1970 (Age: 37) ??F ?Collect Date: ? 03/25/2008 ? Location: ? [facility] ? Receive Date: ? 03/26/2008 ? Provider: ?JODY DENTON CUPOLA REPAIRER ? Copy to: ? Specimen/Source: ?Pap Test, Cervix/Endocervix, ThinPrep Imaging System ? with manual evaluation ? Last Menstrual Period: ? 12/06-12/20 spotted ? Hormonal/Contracep tive Status: ? Intrauterine device: Mirena ? Other: ? HPVA - HPV testing requested if ASC-US on the current ThinPrep Pap test. ? SPECIMEN ADEQUACY ? Satisfactory for Evaluation ? - transformation zone component present ? GENERAL CATEGORIZATION ? Negative for Intraepithelial Lesion or Malignancy ? Document reviewed and electronically signed by: ? Stef N. Jose, CT(ASCP) ? Report Date: ??03/31/2008 09:04 ? End of Report ? [facility] 03/25/2008 03/26/2008 Jody Florez CUPOLA REPAIRER PATHOLOGY ORDERABLES [facility] [address] [place] [address] documented in this encounter Visit Diagnoses Not on filedocumented in this encounter
--- OUTSIDE RECORDS SUMMARY | 2023-12-01 00:41 | XMS_ITS | Encounter Summary ---
Author Organization [facility] Address [address] [place] [address] Care Team Providers Care Plater Helper Name Role Phone Ramirez Artis MD Primary Care Provider [phone] Encounter Details Date Type Department Care Team (Late st Contact Info) Description 11/23/2001 Results Only [facility] - Maple conversion [address] [place] [address] Jody Florez, [facility] [address] [place] [address] [place] [address] Social History Tobacco Use Types [...] Priority Date/Time Associated Diagnosis Comments CYTOPATHOLOGY Routine 11/23/2001 0:00 EDT documented in this encounter Results * CYTOPATHOLOGY (11/23/2001 0:00 EDT) Pathology Report: CYTOPATHOLOGY REPORT Reports generated via electronic interface contain original data; however they are lacking the format of the original report. Caution should be taken when reading/interpreti ng unformatted reports. Name: ? REBECCA CASPER ? Accession #: ? [id number] : ? 1970 (Age: 31) ??F ?Collect Date: ? 11/23/2001 Location: ? [facility] ? Receive Date: ? 11/28/2001 Provider: ?JODY FLOREZ [employer] PL[employer] OPERAT[employer] SUPERVISOR Copy to: ? Specimen/Source: ?ThinPrep Pap Test, Cervix/Endocervix Last Menstrual Period: ? 10/28/01 Hormonal/Contracep tive Status: ? Oral contraceptives ? SPECIMEN ADEQUACY ? Satisfactory for Evaluation - transformation zone component present GENERAL CATEGORIZATION ? Negative for Intraepithelial Lesion or Malignancy ? Document reviewed and electronically signed by: ? Simona Grady, SCT(ASCP) ? Report Date: ??11/29/2001 07:57 End of Report [facility] 11/23/2001 11/28/2001 Jody Florez [employer] PL[employer] OPERAT[employer] SUPERVISOR PATHOLOGY ORDERABLES Performing Organization Address City/State/[facility] Co de Phone Number [facility] [address] [place] [address] documented in this encounter Visit Diagnoses Not on filedocumented in this encounter Care Teams Plater Helper Relationship Specialty Start Date End Date Ramirez Artis MD [address] [place] [address] PCP - General 11/28/08 documented as of this encounter
--- OUTSIDE RECORDS SUMMARY | 2023-12-01 00:41 | XMS_ITS | Encounter Summary ---
Author Organization [facility] Address [address] [place] [address] Care Team Providers Care Manager Assisted Living Name Role Phone Ramirez Artis MD Primary Care Provider [phone] Encounter Details Date Type Department Care Team (Late st Contact Info) Description 05/02/[address] [facility] - Maple conversion [address] [place] [address] Tameka Canela [address] [place] [address] Social History Tobacco Use Types Packs/Day Years Used Date Smoking Tobacco: Never Assessed Sex and Gender Information Value Date Recorded Sex Assigned at Not on file Gender Identity Not on file Sexual Orientation Not on file documented as of this encounter Plan of Treatment Not on file documented as of this encounter Procedures Procedure Name Priority Date/Time Associated Diagnosis Comments CYTOPATHOLOGY Routine 05/02/2003 0:00 EST documented in this encounter Results * CYTOPATHOLOGY (05/02/2003 0:00 EST) Pathology Report: CYTOPATHOLOGY REPORT Reports generated via electronic interface contain original data; however they are lacking the format of the original report. Caution should be taken when reading/interpreti ng unformatted reports. Name: ? REBECCA CASPER ? Accession #: ? [id number] : ? 1970 (Age: 32) ??F ?Collect Date: ? 05/02/2003 Location: ? [facility] ? Receive Date: ? 05/05/2003 Provider: ?ANEA JUAN CARLOS CNM Copy to: ? Specimen/Source: ?ThinPrep Pap Test, Cervix/Endocervix Last Menstrual Period: ? 03/06/03 Menstrual/Pregnanc y Status: ? SPECIMEN ADEQUACY ? Satisfactory for Evaluation - transformation zone component present - scant squamous epithelial component secondary to excessive blood GENERAL CATEGORIZATION ? Negative for Intraepithelial Lesion or Malignancy INTERPRETATION ? Reactive cellular changes associated with inflammation present (includes repair). ? Document reviewed and electronically signed by: ? RADHA KEENAN MD [facility] ? Report Date: ??05/08/2003 13:07 End of Report [facility] 05/02/2003 05/05/2003 Anea Juan Carlos CNM PATHOLOGY ORDERABLES Performing Organization Address City/State/[facility] Co de Phone Number [facility] [address] [place] [address] documented in this encounter Visit Diagnoses Not on filedocumented in this encounter Care Teams Manager Assisted Living Relationship Specialty Start Date End Date Ramirez Artis MD [address] [place] [address] PCP - General 11/28/08 documented as of this encounter
--- OUTSIDE RECORDS SUMMARY | 2023-12-01 00:41 | XMS_ITS | Encounter Summary ---
Author Organization [facility] Address [address] [place] [address] Care Team Providers Care Jet Operator Name Role Phone Ramirez Artis MD Primary Care Provider [phone] Encounter Details Date Type Department Care Team (Late st Contact Info) Description 09/01/2006 Results Only [facility] - Maple conversion [address] [place] [address] Jody Florez, [facility] [address] [place] [address] [place] [address] Social History Tobacco Use Types [...] Priority Date/Time Associated Diagnosis Comments CYTOPATHOLOGY Routine 09/01/2006 0:00 EDT documented in this encounter Results * CYTOPATHOLOGY (09/01/2006 0:00 EDT) Pathology Report: CYTOPATHOLOGY REPORT Reports generated via electronic interface contain original data; however they are lacking the format of the original report. Caution should be taken when reading/interpreti ng unformatted reports. Name: ? REBECCA CASPER ? Accession #: ? [id number] : ? 1970 (Age: 35) ??F ?Collect Date: ? 09/01/2006 Location: ? [facility] ? Receive Date: ? 09/04/2006 Provider: ?JODY FLOREZ [employer] COACH Copy to: ? Specimen/Source: ?ThinPrep Pap Test, Cervix/Endocervix, processed on [employer] ThinPrep Imaging System, with manual evaluation Last Menstrual Period: ? 08/21/06 Hormonal/Contracep tive Status: ? Oral contraceptives Other: ? HPVA - HPV testing requested if ASC-US on the current ThinPrep Pap test. ? SPECIMEN ADEQUACY ? Satisfactory for Evaluation - transformation zone component present GENERAL CATEGORIZATION ? Negative for Intraepithelial Lesion or Malignancy ? Document reviewed and electronically signed by: ? KAILEE Trammell(ASCP) ? Report Date: ??09/06/2006 13:23 End of Report [facility] 09/01/2006 09/04/2006 Jody Florez [employer] COACH PATHOLOGY ORDERABLES Performing Organization Address City/State/[facility] Co de Phone Number [facility] [address] [place] [address] documented in this encounter Visit Diagnoses Not on filedocumented in this encounter Care Teams Jet Operator Relationship Specialty Start Date End Date Ramirez Artis MD [address] [place] [address] PCP - General 11/28/08 documented as of this encounter
--- OUTSIDE RECORDS SUMMARY | 2023-12-01 00:41 | XMS_ITS | Encounter Summary ---
Author Organization [facility] Address [address] [place] [address] Care Team Providers Care Ore Grader Name Role Phone Ramirez Artis MD Primary Care Provider [phone] Encounter Details Date Type Department Care Team (Late st Contact Info) Description 11/20/2000 Results Only [facility] [address] [place] [address] Frances Frank, ALBERTO Social History Tobacco Use Types Packs/Day Years Used Date Smoking Tobacco: Never Assessed Sex and Gender Information Value Date Recorded Sex Assigned at Not on file Gender Identity Not on file Sexual Orientation Not on file documented as of this encounter Plan of Treatment Not on file documented as of this encounter Procedures Procedure Name Priority Date/Time Associated Diagnosis Comments CYTOPATHOLOGY Routine 11/20/2000 0:00 EDT documented in this encounter Results * CYTOPATHOLOGY (11/20/2000 0:00 EDT) Pathology Report: CYTOPATHOLOGY REPORT Reports generated via electronic interface contain original data; however they are lacking the format of the original report. Caution should be taken when reading/interpreti ng unformatted reports. Name: ? REBECCA CASPER ? Accession #: ? [id number] : ? 1970 (Age: 30) ??F ?Collect Date: ? 11/20/2000 Location: ? [facility] ? Receive Date: ? 11/22/2000 Provider: ?FRANCES FRANK SLEEVE FIXER Copy to: ? Specimen/Source: ?ThinPrep Pap Test, Cervix/Endocervix Last Menstrual Period: ? 10/28/00 Hormonal/Contracep tive Status: ? Oral contraceptives ? SPECIMEN ADEQUACY ? Satisfactory for evaluation. GENERAL CATEGORIZATION ? Within Normal Limits ? Document reviewed and electronically signed by: ? KAILEE Howard(ASCP) ? Report Date: ??11/23/2000 12:58 End of Report [facility] 11/20/2000 11/22/2000 Frances Frank NP PATHOLOGY ORDERABLES Performing Organization Address City/State/[facility] Co de Phone Number [facility] [address] [place] [address] documented in this encounter Visit Diagnoses Not on filedocumented in this encounter Care Teams Ore Grader Relationship Specialty Start Date End Date Ramirez Artis MD [address] [place] [address] PCP - General 11/28/08 documented as of this encounter
--- OUTSIDE RECORDS SUMMARY | 2023-12-01 00:41 | XMS_ITS | Encounter Summary ---
Author Organization [facility] Address [address] [place] [address] Care Team Providers Care Stick Inserter Name Role Phone Ramirez Artis MD Primary Care Provider [phone] Encounter Details Date Type Department Care Team (Late st Contact Info) Description 11/03/1999 Results Only [facility] - Maple conversion [address] [place] [address] Frances Frank, ALBERTO Social History Tobacco Use [...] Priority Date/Time Associated Diagnosis Comments CYTOPATHOLOGY Routine 11/03/1999 0:00 EDT documented in this encounter Results * CYTOPATHOLOGY (11/03/1999 0:00 EDT) Pathology Report: CYTOPATHOLOGY REPORT Reports generated via electronic interface contain original data; however they are lacking the format of the original report. Caution should be taken when reading/interpreti ng unformatted reports. Name: ? REBECCA CASPER ? Accession #: ? [id number] : ? 1970 (Age: 29) ??F ?Collect Date: ? 11/03/1999 Location: ? [facility] ? Receive Date: ? 11/04/1999 Provider: ?FRANCES FRANK HARVEST WORKER [employer]OP Copy to: ? Specimen/Source: ?ThinPrep Pap Test, Cervix/Endocervix Last Menstrual Period: ? Hormonal/Contracep tive Status: ? Yes ? SPECIMEN ADEQUACY ? Satisfactory for evaluation. GENERAL CATEGORIZATION ? Within Normal Limits ? Document reviewed and electronically signed by: ? Simona Grady, [facility](ASCP) ? Report Date: ??11/08/1999 13:56 End of Report [facility] 11/03/1999 11/04/1999 Frances Frank NP PATHOLOGY ORDERABLES Performing Organization Address City/State/[facility] Co de Phone Number [facility] [address] [place] [address] documented in this encounter Visit Diagnoses Not on filedocumented in this encounter Care Teams Stick Inserter Relationship Specialty Start Date End Date Ramirez Artis MD [address] [place] [phone] PCP - General 11/28/08 documented as of this encounter
--- OUTSIDE RECORDS SUMMARY | 2023-12-01 00:41 | XMS_ITS | Encounter Summary ---
Author Organization [facility] Address [address] [place] [address] Care Team Providers Care Sales Representative Sales Manager Name Role Phone Ramirez Artis MD Primary Care Provider [phone] Encounter Details Date Type Department Care Team (Late st Contact Info) Description 07/08/2005 Results Only [facility] - Maple conversion [address] [place] [address] [place] [id number] Social History Tobacco Use Types Packs/Day Years Used Date Smoking Tobacco: Never Assessed Sex and Gender Information Value Date Recorded Sex Assigned at Not on file Gender Identity Not on file Sexual Orientation Not on file documented as of this encounter Plan of Treatment Not on file documented as of this encounter Procedures Procedure Name Priority Date/Time Associated Diagnosis Comments CYTOPATHOLOGY Routine 07/08/2005 0:00 EDT documented in this encounter Results * CYTOPATHOLOGY (07/08/2005 0:00 EDT) Pathology Report: CYTOPATHOLOGY REPORT Reports generated via electronic interface contain original data; however they are lacking the format of the original report. Caution should be taken when reading/interpreti ng unformatted reports. Name: ? REBECCA CASPER ? Accession #: ? [id number] : ? 1970 (Age: 34) ??F ?Collect Date: ? 07/08/2005 Location: ? [facility] ? Receive Date: ? 07/11/2005 Provider: ?MELISA BALDERAS CNM Copy to: ? Specimen/Source: ?ThinPrep Pap Test, Cervix/Endocervix, processed on [employer] ThinPrep Imaging System, with manual evaluation Last Menstrual Period: ? 06/27/05 Other: ? HPVA - HPV testing requested if ASC-US on the current ThinPrep Pap test. ? SPECIMEN ADEQUACY ? Satisfactory for Evaluation - transformation zone component present GENERAL CATEGORIZATION ? Negative for Intraepithelial Lesion or Malignancy ? Document reviewed and electronically signed by: ? KAILEE Trammell(ASCP) ? Report Date: ??07/13/2005 07:50 End of Report [facility] 07/08/2005 07/11/2005 Melisa Balderas CNM PATHOLOGY ORDERABLES Performing Organization Address City/State/[facility] Co de Phone Number [facility] [address] [place] [address] documented in this encounter Visit Diagnoses Not on filedocumented in this encounter Care Teams Sales Representative Sales Manager Relationship Specialty Start Date End Date Ramirez Artis MD [address] [place] [address] PCP - General 11/28/08 documented as of this encounter
--- OUTSIDE RECORDS SUMMARY | 2023-12-01 00:41 | XMS_ITS | Encounter Summary ---
Author Organization [facility] Address [address] [place] [address] Care Team Providers Care Journalism Professor Name Role Phone Jomar [place] MD Primary Care Provider [phone] Encounter Details Date Type Department Care Team (Late st Contact Info) Description 11/29/2000 Results Only [facility] - Maple conversion [address] [place] [address] Jomar [place] MD [address] [place] [address] Social History Tobacco Use Types Packs/Day Years Used Date Smoking Tobacco: Never Assessed Sex and Gender Information Value Date Recorded Sex Assigned at Not on file Gender Identity Not on file Sexual Orientation Not on file documented as of this encounter Plan of Treatment Not on file documented as of this encounter Procedures Procedure Name Priority Date/Time Associated Diagnosis Comments SURGICAL PATHOLOGY Routine 11/29/2000 0:00 EDT documented in this encounter Results * SURGICAL PATHOLOGY (11/29/2000 0:00 EDT) Pathology Report: SURGICAL PATHOLOGY REPORT Reports generated via electronic interface contain original data; however they are lacking the format of the original report. Caution should be taken when reading/interpreti ng unformatted reports. Name: ? REBECCA CASPER ? Accession #: ? [id number] ? : ? 1970 (Age: 30) ??F ? Collect Date: ? 11/29/2000 ? Location: ? [facility] ? Receive Date: ? 12/01/2000 ? Provider: JOMAR CONWAY MD Copy to: JATINDER ESPINAL TOOL DESIGN ENGINEER ? Final Pathologic Diagnosis: ? Skin of shoulder, left, shave biopsy: - Melanocytic nevus, compound type. Document reviewed and electronically signed by: Lucille Omalley MD Report ??Date: 12/04/2000 17:29 By the signature above, the attending physician certifies that he/she has personally conducted a gross and/or microscopic examination of the described specimens and rendered or confirmed the above diagnosis. Specimen(s) Received: ? Shave biopsy L shoulder Clinical History: ? Nevus left shoulder; clinical diagnosis code: ??239.2, 239.8 Gross Description: ? Received in formalin labelled Pennie and nevus left shoulder is a 0.4 x 0.4 x 0.2 cm shave biopsy of a stokes-brown papule. ??Trisected and entirely submitted in a single cassette. ??(Dr. Mello)/[facility] End of Report [facility] 11/29/2000 12/01/2000 16: 22 EDT Jomar [place] MD PATHOLOGY ORDERABLES [facility] [address] [place] [address] documented in this encounter Visit Diagnoses Not on filedocumented in this encounter Care Teams Journalism Professor Relationship Specialty Start Date End Date Jomar [place] MD [address] [place] [address] PCP - General 9/4/09 documented as of this encounter
--- OUTSIDE RECORDS SUMMARY | 2023-12-01 00:41 | XMS_ITS | Encounter Summary ---
Author Organization [facility] Address [address] [place] [address] Care Team Providers Care Mill Washer Name Role Phone Jomar [place] MD Primary Care Provider [phone] Encounter Details Date Type Department Care Team (Late st Contact Info) Description 09/26/2005 Results Only [facility] - Maple conversion [address] [place] [address] Jomar [place] MD [address] [place] [address] Social History Tobacco Use Types [...] Date/Time Associated Diagnosis Comments SURGICAL PATHOLOGY Routine 09/26/2005 0:00 EDT documented in this encounter Results * SURGICAL PATHOLOGY (09/26/2005 0:00 EDT) Pathology Report: SURGICAL PATHOLOGY REPORT Reports generated via electronic interface contain original data; however they are lacking the format of the original report. Caution should be taken when reading/interpreti ng unformatted reports. Name: ? REBECCA CASPER ? Accession #: ? [id number] ? : ? 1970 (Age: 34) ??F ? Collect Date: ? 09/26/2005 ? Location: ? [facility] ? Receive Date: ? 09/28/2005 ? Provider: JOMAR CONWAY MD Copy to: ? Final Pathologic Diagnosis: ? Skin of left lateral side of left breast, excision: - Melanocytic nevus, predominantly intradermal type. Document reviewed and electronically signed by: Maximino Aparicio MD Report ??Date: 09/29/2005 16:51 By the signature above, the attending physician certifies that he/she has personally conducted a gross and/or microscopic examination of the described specimens and rendered or confirmed the above diagnosis. Specimen(s) Received: ? Nevus ??left side lateral L breast suture posterior Clinical History: ? Not listed Gross Description: ? Received in formalin labelled Pennie and nevus left side, suture posterior is an oriented skin ellipse with a suture on a tip designating the posterior aspect as per the surg path requisition. The specimen measures 1.1 cm anterior to posterior, 0.5 cm superior to inferior, and is excised to a depth of 0.4 cm. ??The cutaneous surface has a brown well-delineated papule which measures 0.4 cm in diameter and 0.1 cm in height. The surgical margin of the superior half of the specimen is blue inked and the inferior half of the specimen is black inked. ??The specimen is serially sectioned from anterior to posterior and is entirely submitted as follows: BLOCK MELCHOR A1 ?Anterior tip, reverse en face A2, A3 ?Four central sections A4 ?Posterior tip, reverse en face (Dr. Arias-CAYLA)/[facility] End of Report [facility] 09/26/2005 09/28/2005 15: 22 EDT Jomar [place] MD PATHOLOGY ORDERABLES Performing Organization Address City/State/[facility] Co de Phone Number [facility] [address] [place] [address] documented in this encounter Visit Diagnoses Not on filedocumented in this encounter Care Teams Mill Washer Relationship Specialty Start Date End Date Jomar [place] MD [address] [place] [address] PCP - General 11/28/08 documented as of this encounter
--- OUTSIDE RECORDS SUMMARY | 2023-12-01 00:41 | XMS_ITS | Encounter Summary ---
Author Organization [facility] Address [address] [place] [address] Care Team Providers Care Retail Administrative Assistant Name Role Phone Ramirez Artis MD Primary Care Provider [phone] Encounter Details Date Type Department Care Team (Late st Contact Info) Description 06/24/2004 Results Only [facility] - Maple conversion [address] [place] [address] Tameka Rangel [address] [place] [address] Social History Tobacco Use Types [...] Priority Date/Time Associated Diagnosis Comments CYTOPATHOLOGY Routine 06/24/2004 0:00 EST documented in this encounter Results * CYTOPATHOLOGY (06/24/2004 0:00 EST) Pathology Report: CYTOPATHOLOGY REPORT Reports generated via electronic interface contain original data; however they are lacking the format of the original report. Caution should be taken when reading/interpreti ng unformatted reports. Name: ? REBECCA CASPER ? Accession #: ? [id number] : ? 1970 (Age: 33) ??F ?Collect Date: ? 06/24/2004 Location: ? [facility] ? Receive Date: ? 06/28/2004 Provider: ?TAMEKA RANGEL CNM Copy to: ? Specimen/Source: ?ThinPrep Pap Test, Cervix/Endocervix Last Menstrual Period: ? Hormonal/Contracep tive Status: ? Depo-Provera Other: ? HPVA - HPV testing requested if ASC-US on the current ThinPrep Pap test. ? SPECIMEN ADEQUACY ? Satisfactory for Evaluation - transformation zone component present GENERAL CATEGORIZATION ? Negative for Intraepithelial Lesion or Malignancy ? Document reviewed and electronically signed by: ? KAILEE Tony(ASCP) ? Report Date: ??07/01/2004 14:22 End of Report [facility] 06/24/2004 06/28/2004 Tameka Rangel CNM PATHOLOGY ORDERABLES Performing Organization Address City/State/[facility] Co de Phone Number [facility] [address] [place] [address] documented in this encounter Visit Diagnoses Not on filedocumented in this encounter Care Teams Retail Administrative Assistant Relationship Specialty Start Date End Date Ramirez Artis MD [address] [place] [address] PCP - General 11/28/08 documented as of this encounter
== END 2023-12-01 00:55 ==
LOC: DI 00:35
PROVIDERS: PCP Physician Assistant; Visit Provider Physician Assistant
DX: Z12.31 Encounter for screening mammogram for malignant neoplasm of breast (principal); R92.8 Other abnormal and inconclusive findings on diagnostic imaging of breast
CPT/HCPCS: 77063; 77067

== ENCOUNTER 2024-09-20 13:56 | Outpatient (REF) | payer OTHER, SELFPAY ==
[2024-09-20 21:40] LABS: Hemoglobin A1C 5.8 % (<5.7)
[2024-09-20 21:42] LABS: ALT 32 U/L (14-59); AST 14 U/L (15-37); Albumin 4.2 g/dL (3.4-5.0); Alkaline Phosphatase 66 U/L (46-116); Anion Gap 11.2 mmol/L (3-11); BUN 15 mg/dL (7-18); Bilirubin, Total 0.5 mg/dL (0.2-1.0); CO2 26.8 mmol/L (21.0-32.0); CREATININE 0.8 mg/dL (0.55-1.02); Calcium 9.1 mg/dL (8.5-10.1); Calculated LDL 160 mg/dL (<100); Chloride 102 mmol/L (98-107); Cholesterol 238 mg/dL (<200); Estimated GFR 89.15 (mL/min/1.73m2); Glucose 109 mg/dL (74-106); HDL Cholesterol 46 mg/dL (>or=50); Potassium 3.8 mmol/L (3.5-5.1); Sodium 140 mmol/L (136-145); Total Protein 7.4 g/dL (6.4-8.2); Triglyceride 162 mg/dL (<150)
== END 2024-09-20 13:57 | disposition home or self-care (01) ==
LOC: NCHCN 13:56
PROVIDERS: PCP Physician Assistant; Visit Provider Physician Assistant
DX: I10 Essential (primary) hypertension (principal)
CPT/HCPCS: 80053; 80061; 83036

== ENCOUNTER 2024-11-21 03:18 | Outpatient (CLI) | payer OTHER, SELFPAY ==
--- NOTE | 2024-11-21 13:00 | DI.MAMMO_ITS ---
Exam(s) MAMMO SCREENING EXAM: MAMMO SCREENING CLINICAL HISTORY: SCREENING,Z12.31 TECHNIQUE: Bilateral full field digital CC and MLO mammographic images were obtained with 3D tomosynthesis and utilizing computer aided detection (CAD). COMPARISON: Comparison is made with prior examinations. FINDINGS: Masses/Architectural Distortion: No suspicious masses or areas of architectural distortion are present. Microcalcifications: No suspicious pleomorphic-type are seen. Skin Thickening/Nipple Retraction: None. IMPRESSION: 1. No significant interval change with no specific features of malignancy noted. 2. Unless there is more urgent need, screening mammography is recommended, as per [employer] guidelines. BI-RADS Category 1 - Negative Breast Density - Category C - The breast are heterogeneously dense, which may obscure small masses. Breast density Category C or D implies that the patient has dense breast tissue. Dense breast tissue can make it harder to find cancer on a mammogram. Dense breast tissue is also associated with an increased risk of breast cancer. This information about the result of the mammogram report was provided to the patient to raise their awareness. Use this report when you speak with the patient about their risks for breast cancer, which includes their family history. At that time, you may recommend additional screening tests (Ultrasound or MRI) as these tests may add significant information. A negative radiographic report should not delay biopsy if a dominant or clinically suspicious mass is present. Up to ten percent of cancers are not identified on mammography. A negative report may reinforce clinical impression. Adenosis and dense breasts may obscure an underlying neoplasm. False positive reports average 6 to 10%. Patient will receive a letter notifying them of these results.
== END 2024-11-21 03:38 ==
PROVIDERS: PCP Physician Assistant; Visit Provider Physician Assistant
DX: Z12.31 Encounter for screening mammogram for malignant neoplasm of breast (principal); R92.333 Mammographic heterogeneous density, bilateral breasts
CPT/HCPCS: 77063; 77067

== ENCOUNTER 2024-12-18 15:17 | Outpatient (CLI) | payer OTHER, SELFPAY ==
[2024-12-18 22:22] LABS: FSH 48.0 mIU/mL (See Note)
== END 2024-12-18 15:18 | disposition home or self-care (01) ==
LOC: LBO 15:18
PROVIDERS: PCP Physician Assistant; Visit Provider Nurse Practitioner Women's Health
DX: N91.2 Amenorrhea, unspecified (principal)
CPT/HCPCS: 36415; 83001